=== PATIENT | male | born 1965 | race Caucasian/White ===

== ENCOUNTER 2016-07-01 18:41 | Emergency (ER) | payer SELFPAY ==
[2016-07-01 18:52] VITALS: BP 139/102
[2016-07-01 19:10] LABS: Basophils % (Auto) 0.7 % (0.0-1.8); Hematocrit 45.2 % (35.5-45.6); Hemoglobin 15.2 gm/dl (11.8-15.2); Mean Corpuscular HGB Conc 34 % (32-34); Mean Corpuscular Hemoglobin 29 pg (28-32); Mean Corpuscular Volume 86 fl (84-94); Platelet Count 259 K/mm3 (140-440); Red Blood Count 5.25 M/mm3 (3.65-5.03); Red Cell Distribution Width 13.1 % (13.2-15.2); White Blood Count 9.8 K/mm3 (4.5-11.0)
[2016-07-01 19:27] LABS: Anion Gap 20 mmol/L; BUN/Creatinine Ratio 9.09; Blood Urea Nitrogen 10 mg/dL (9-20); Calcium 9.1 mg/dL (8.4-10.2); Carbon Dioxide 24 mmol/L (22-30); Chloride 101.2 mmol/L (98-107); Glucose 144 mg/dL (75-100); Potassium 3.9 mmol/L (3.6-5.0); Sodium 141 mmol/L (137-145)
--- NOTE | 2016-07-02 07:40 | XRay Report ---
ROUTINE CHEST, TWO VIEWS: HISTORY: chest pain. The trachea, heart, mediastinal contour, lung sanderson and bony thorax are unremarkable. IMPRESSION: Unremarkable chest x-ray.
== END 2016-07-01 21:35 | disposition left against medical advice (07) ==
LOC: ED 18:41
DX: R07.9 Chest pain, unspecified (principal); Z53.21 Procedure and treatment not carried out due to patient leaving prior to being seen by health care provider
CPT/HCPCS: 36415; 71020; 80048; 84484; 85025; 93005; 93010